=== PATIENT | male | born 1955 | race African-American/Black ===

== ENCOUNTER 2019-01-01 09:21 | Observation (INO) | payer SELFPAY ==
[~2019-01-01] VITALS: Ht 172.7 cm; Wt 46.3 kg
[2019-01-01 10:17] LABS: BASO # 0.1 x10^3/uL (0.0-0.2); BASO % 2 % (0-3); EOS % 1 % (0-3); HEMATOCRIT 40.4 % (39.0-53.0); HEMOGLOBIN 13.4 g/dL (13.0-17.5); LYMPH # 1.3 x10^3/uL (1.0-4.8); LYMPH % 18 % (24-48); MEAN CORPUSCULAR HEMOGLOBIN 31 pg (25-35); MEAN CORPUSCULAR HGB CONC 33 g/dL (31-37); MEAN CORPUSCULAR VOLUME 93 fL (79-100); MONO # 0.8 x10^3/uL (0.0-1.1); MONO % 11 % (0-9); NEUT # 5.1 x10^3/uL (1.8-7.7); NEUT % 69 % (31-73); PLATELET COUNT 471 x10^3/uL (140-400); RED BLOOD COUNT 4.37 x10^6/uL (4.30-5.70); RED CELL DISTRIBUTION WIDTH 17.5 % (11.5-14.5); WHITE BLOOD COUNT 7.4 x10^3/uL (4.0-11.0)
--- NOTE | 2019-01-01 10:27 | EKG ---
[facility] [address] [place] [address] Test Date: 2019-01-01 Test Time: 09:52:44 Pat Name: BETY MARTÍNEZ Department: Room: Gender: M Attending Psychiatrist: : [id number] Requested By: HERNAN OSEI Order Number: [id number] Reading MD: Measurements Intervals [place] Rate: 69 P: 61 GA: 130 QRS: 58 QRSD: 74 T: 47 QT: 350 QTc: 376 Interpretive Statements SINUS RHYTHM OTHERWISE NORMAL ECG RI6.01 No previous ECG available for comparison
[2019-01-01 10:28] LABS: CALCIUM 9.3 mg/dL (8.5-10.1); POTASSIUM 4.3 mmol/L (3.5-5.1)
[2019-01-01 10:33] LABS: ALBUMIN 3.7 g/dL (3.4-5.0); ALBUMIN/GLOBULIN RATIO 0.8 (1.0-1.7); TOTAL BILIRUBIN 0.7 mg/dL (0.2-1.0); TOTAL PROTEIN 8.2 g/dL (6.4-8.2)
[2019-01-01 10:44] LABS: PROTHROMBIN TIME PATIENT 12.3 SEC (11.7-14.0)
--- NOTE | 2019-01-01 10:55 | RAD ---
EXAM: CHEST 1 VIEW History: Shortness of breath COMPARISON: 09/07/2009 TECHNIQUE: Single portable radiograph of the chest FINDINGS: The cardiac silhouette is unremarkable. Minimal blunting of the left CP angle could be tiny effusion or pleural thickening. IMPRESSION: Minimal blunting of the left CP angle could be tiny effusion or pleural thickening. Electronically signed by: Zion Chung MD (01/01/2019 10:52 AM) [id number]
[2019-01-01] MEDS ORDERED: IV NORMAL SALINE 500ML BAG 500 ML IV ONE (11:15)
[2019-01-01 11:28] LABS: BILIRUBIN,URINE NEGATIVE (NEG); CLARITY,URINE CLEAR; COLOR,URINE YELLOW; NITRITE,URINE NEGATIVE (NEG); PROTEIN,URINE NEGATIVE (NEG-TRACE); UROBILINOGEN,URINE 0.2 mg/dL (0.2 mg/dL)
[2019-01-01 11:36] LABS: SQUAMOUS EPITHELIAL CELL,UR OCC /LPF
[2019-01-01 11:37] LABS: BACTERIA,URINE 0 /HPF (0-FEW); RBC,URINE 0 /HPF (0-2); WBC,URINE OCC /HPF (0-4)
[2019-01-01] MEDS ORDERED: IOHEXOL 350 MG/ML 100 ML VIAL. IV ONE (11:45)
[2019-01-01] MEDS ORDERED: MECLIZINE HCL 12.5 MG TABLET. PO ONE (11:45)
--- NOTE | 2019-01-01 12:31 | RAD ---
Examination: CT angiography chest HISTORY: History of elevated d-dimer, shortness of breath COMPARISON: None available TECHNIQUE: Axial CT angiographic images of chest were performed with IV contrast. Coronal and sagittal 3-D MIP reformats are performed Exposure: One or more of the following individualized dose reduction techniques were utilized for this examination: 1. Automated exposure control 2. Adjustment of the mA and/or kV according to patient size 3. Use of iterative reconstruction technique FINDINGS: The central airways are patent. The ascending aorta measures 3 cm in transverse dimension. Coronary artery calcifications. There is no evidence of filling defect identified in the main pulmonary arterial trunk and right and left main pulmonary arteries and the visualized lobar, segmental branches of the pulmonary arteries. Moderate bilateral lung emphysematous changes. Linear atelectasis or scarring changes identified in the left lung base. The visualized liver, spleen grossly appears unremarkable. Mild aortic atherosclerosis. Mild degenerative changes thoracic spine. IMPRESSION: 1. No evidence of pulmonary embolism. 2. Lung emphysematous changes. Linear airspace opacity identified in the left lung base likely atelectasis or scarring. 3. Coronary artery calcifications. Electronically signed by: Zion Chung MD (01/01/2019 12:28 PM) [id number]
--- NOTE | 2019-01-01 13:57 | PDOC2 ---
CARDIAC CONSULT DATE OF CONSULT Date of Consult DATE: 01/01/19 TIME: 13:41 REASON FOR CONSULT Reason for Consult: JAIMES REFERRING PHYSICIAN Referring Physician: Julio C SOURCE Source: Chart review, Patient HISTORY OF PRESENT ILLNESS HISTORY OF PRESENT ILLNESS This is a pleasant 63 yo male admitted for complains of dizziness. Reports that in the last week he has been having dizziness walking like drunk per his description. This last about 5 to 10 min at a time. No associated vertigo, nausea. This is mainly when he is upright. No symptoms of palpitations. Reports no falls or any passing out. He does have SOA particularly with exertion but this has been going on for over a yr and no changes with his activity tolerance. Denies any chest pain and repeatedly per him no exertional CP. No hx of CVA, CAD, arrhythmias. He is a heavy drinker. No hx of seizures. So far denies any focal neurological symptoms. The last time he saw a DrHuseyin was 3 yrs ago. PAST MEDICAL HISTORY Cardiovascular: No pertinent hx Pulmonary: COPD CENTRAL NERVOUS SYSTEM: Other (No pertinent history) GI: No pertinent hx Heme/Onc: No pertinent hx Hepatobiliary: No pertinent hx Psych: Other (alcoholism) Musculoskeletal: Osteoarthritis Rheumatologic: No pertinent hx Infectious disease: No pertinent hx ENT: No pertinent hx Renal/: No pertinent hx Endocrine: No pertinent hx Dermatology: No pertinent hx PAST SURGICAL HISTORY Past Surgical History: Hernia Repair (left), Other (right hand repair) FAMILY HISTORY Family History: Heart Disease (father and brother) SOCIAL HISTORY Smoke: Quit (20 pk yr at least) ALCOHOL: heavy Drugs: Marijuana Lives: Alone CURRENT MEDICATIONS CURRENT MEDICATIONS Current Medications Medications (Trade) Dose Ordered Sig/Chuyita Route PRN Reason Start Time Stop Time Status Last Admin Dose Admin Sodium Chloride 500 ml @ 500 mls/hr 1X ONCE IV 01/01/19 11:15 01/01/19 12:14 DC 01/01/19 11:32 Meclizine HCl (Antivert) 25 mg 1X ONCE PO 01/01/19 11:45 01/01/19 11:47 DC 01/01/19 11:32 Iohexol (Omnipaque 350 Mg/ml) 90 ml 1X ONCE IV 01/01/19 11:45 01/01/19 11:47 DC 01/01/19 12:03 ALLERGIES ALLERGIES: Coded Allergies: No Known Drug Allergies (Unverified , 01/01/19) ROS Review of System 14 point ROS evaluated with pertinent positives noted per HPI PHYSICAL EXAM General: Alert, Oriented X3, Cooperative, No acute distress, Other (cahectic looking) HEENT: Atraumatic, Mucous membr. moist/pink Lungs: Clear to auscultation Heart: Regular rate (SR), Normal S1, Normal S2 Abdomen: Soft, No tenderness Extremities: No cyanosis, No edema Skin: No breakdown Neuro: Normal speech, Sensation intact Psych/Mental Status: Mental status NL, Mood NL MUSCULOSKELETAL: Osteoarthritic changes both hands VITALS/I&O VITALS/I&O: Vital Signs Date Time Temp Pulse Resp B/P (MAP) Pulse Ox O2 Delivery O2 Flow Rate FiO2 01/01/19 12:43 53 18 99 01/01/19 09:25 99.3 169/98 (121) Room Air 99.3 LABS Lab: Laboratory Tests Test 01/01/19 10:02 01/01/19 11:05 White Blood Count 7.4 x10^3/uL (4.0-11.0) Red Blood Count 4.37 x10^6/uL (4.30-5.70) Hemoglobin 13.4 g/dL (13.0-17.5) Hematocrit 40.4 % (39.0-53.0) Mean Corpuscular Volume 93 fL (79-100) Mean Corpuscular Hemoglobin 31 pg (25-35) Mean Corpuscular Hemoglobin Concent 33 g/dL (31-37) Red Cell Distribution Width 17.5 % (11.5-14.5) H Platelet Count 471 x10^3/uL (140-400) H Neutrophils (%) (Auto) 69 % (31-73) Lymphocytes (%) (Auto) 18 % (24-48) L Monocytes (%) (Auto) 11 % (0-9) H Eosinophils (%) (Auto) 1 % (0-3) Basophils (%) (Auto) 2 % (0-3) Neutrophils # (Auto) 5.1 x10^3/uL (1.8-7.7) Lymphocytes # (Auto) 1.3 x10^3/uL (1.0-4.8) Monocytes # (Auto) 0.8 x10^3/uL (0.0-1.1) Eosinophils # (Auto) 0.0 x10^3/uL (0.0-0.7) Basophils # (Auto) 0.1 x10^3/uL (0.0-0.2) Prothrombin Time 12.3 SEC (11.7-14.0) Prothrombin Time INR 0.9 (0.8-1.1) D-Dimer (Laine) 0.67 ug/mlFEU (0.00-0.50) H Sodium Level 142 mmol/L (136-145) Potassium Level 4.3 mmol/L (3.5-5.1) Chloride Level 104 mmol/L (98-107) Carbon Dioxide Level 27 mmol/L (21-32) Anion Gap 11 (6-14) Blood Urea Nitrogen 5 mg/dL (8-26) L Creatinine 1.0 mg/dL (0.7-1.3) Estimated GFR (Cockcroft-Gault) 91.0 BUN/Creatinine Ratio 5 (6-20) L Glucose Level 108 mg/dL (70-99) H Calcium Level 9.3 mg/dL (8.5-10.1) Total Bilirubin 0.7 mg/dL (0.2-1.0) Aspartate Amino Transferase (AST) 30 U/L (15-37) Alanine Aminotransferase (ALT) 14 U/L (16-63) L Alkaline Phosphatase 68 U/L (46-116) Troponin I Quantitative < 0.017 ng/mL (0.000-0.055) PE-Mlp-W-Type Natriuretic Peptide 34 pg/mL (0-124) Total Protein 8.2 g/dL (6.4-8.2) Albumin 3.7 g/dL (3.4-5.0) Albumin/Globulin Ratio 0.8 (1.0-1.7) L Urine Collection Type Unknown Urine Color Yellow Urine Clarity Clear Urine pH 7.0 Urine Specific [place] 1.015 Urine Protein Negative mg/dL (NEG-TRACE) Urine Glucose (UA) Negative mg/dL (NEG) Urine Ketones (Stick) Negative mg/dL (NEG) Urine Blood Negative (NEG) Urine Nitrite Negative (NEG) Urine Bilirubin Negative (NEG) Urine Urobilinogen Dipstick 0.2 mg/dL (0.2 mg/dL) Urine Leukocyte Esterase Negative (NEG) Urine RBC 0 /HPF (0-2) Urine WBC Occ /HPF (0-4) Urine Squamous Epithelial Cells Occ /LPF Urine Bacteria 0 /HPF (0-FEW) Urine Mucus Mod /LPF Laboratory Tests 01/01/19 10:02 Laboratory Tests 01/01/19 10:02 ASSESSMENT/PLAN ASSESSMENT/PLAN 1. Dizziness: neurogenic component could not be completely ruled out with his heavy ETOH consumption but possibly from dehydration r/t to heavy alcoholism 2. Heavy Alcoholism: 32 oz x12 beers daily. chronic 3. Dyspnea: mainly with exertion, unchanged for >1 yr, no alteration on activity tolerance. This is likely from his COPD 4. Coronary calcifications: incidental finding with CT. CP free 5. COPD 6. Marijuana use 7. Cachexia Recommendations 1. CIWA protocol, defer to PCP 2. TSH, lipids, TTE, UDS 3. Will need detox if pt is willing as an outpt 4. Marijuana cessation 5. Further recommendations per pending test 6. Orthostatic readings. ROBBY HAY APRN Jan 01, 2019 13:57
[2019-01-01] MEDS ORDERED: MORPHINE SULFATE 2 MG/ML VIAL. IV PRN (14:00)
[2019-01-01] MEDS ORDERED: TEMAZEPAM 7.5 MG CAPSULE PO PRN (14:00)
[2019-01-01] MEDS ORDERED: ONDANSETRON PF 4 MG/2 ML VIAL. IV PRN (14:00)
[2019-01-01] MEDS ORDERED: chlordiazePOXIDE HCL 25 MG CAPSULE PO PRN (14:00)
[2019-01-01] MEDS ORDERED: ACETAMINOPHEN 500 MG TABLET PO PRN (14:00)
[2019-01-01] MEDS ORDERED: guaiFENesin DM 200MG/20MG 10 ML SYRUP PO PRN (14:00)
[2019-01-01] MEDS ORDERED: ACETAMINOPHEN/CODEINE 300/30MG TABLET. PO PRN (14:00)
--- NOTE | 2019-01-01 14:00 | PDOC1 ---
History and Physical Date of Admission Date of Admission DATE: 01/01/19 TIME: 13:56 Identification/Chief Complaint Chief Complaint lightheaded Source Source: Caregiver, Chart review, Patient History of Present Illness History of Present Illness 43-year-old -Russian male with a BMI 27, lightheaded for the past couple days hence went to the ER. At the emergency room then complained of SOB and chest pain hence admitted with cardiology consult. Does not take any home meds, smokes heavily and drink heavily but he is in denial in both aspects. But cards mid level level was able to elicit this. Also RN was able to elicit a smoking history and drinking history. Not tachycardic. Echocardiogram ordered , okay to eat. Admitted for some cardiovascular/ischemic workup especially given bad lifestyle habits. WIll check orthostatics re the lightheadedness CTA of the chest shows no PE, no pneumonia but emphysematous lungs with coronary calcifications Past Medical History Cardiovascular: No pertinent hx Pulmonary: No pertinent hx GI: No pertinent hx Heme/Onc: No pertinent hx Hepatobiliary: No pertinent hx Psych: No pertinent hx Rheumatologic: No pertinent hx Infectious disease: No pertinent hx Renal/: No pertinent hx Endocrine: No pertinent hx Dermatology: No pertinent hx Past Surgical History Past Surgical History: No pertinent history Family History Family History: Hypertension Social History Smoke: <1 pack per day ALCOHOL: heavy Drugs: None Current Medications Current Medications Current Medications Sodium Chloride 500 ml @ 500 mls/hr 1X ONCE IV Last administered on 01/01/19at 11:32; Start 01/01/19 at 11:15; Stop 01/01/19 at 12:14; Status DC Meclizine HCl (Antivert) 25 mg 1X ONCE PO Last administered on 01/01/19at 11:32; Start 01/01/19 at 11:45; Stop 01/01/19 at 11:47; Status DC Iohexol (Omnipaque 350 Mg/ml) 90 ml 1X ONCE IV Last administered on 01/01/19at 12:03; Start 01/01/19 at 11:45; Stop 01/01/19 at 11:47; Status DC Allergies Allergies: Coded Allergies: No Known Drug Allergies (Unverified , 01/01/19) ROS Review of System pos for Chest pain, no fever, no thick cough, clear phlegm, SOA on exertion, lightheadedness, no dizziness, no headache, no seizure-like activities Physical Exam General: Alert, Oriented X3, Cooperative, No acute distress HEENT: Atraumatic, PERRLA, EOMI Lungs: Clear to auscultation, Normal air movement Heart: S1S2, RRR, no thrills, no rubs, no gallops, no murmurs Cardiovascular: S1, S2 Abdomen: Normal bowel sounds, Soft, No tenderness, No hepatosplenomegaly, No masses Male Genitals Exam: normal genitalia, normal prostate Rectal Exam: not examined PELVIC: Nml ext genitalia Extremities: No clubbing, No cyanosis, No edema, Normal pulses, No tenderness/swelling Skin: No rashes, No breakdown, No significant lesion Neuro: Normal gait, Normal speech, Strength at 5/5 X4 ext, Normal tone, Sensation intact, Cranial nerves 3-12 NL, Reflexes 2+ Psych/Mental Status: Mental status NL, Mood NL Vitals Vitals Vital Signs Date Time Temp Pulse Resp B/P (MAP) Pulse Ox O2 Delivery O2 Flow Rate FiO2 01/01/19 13:48 Room Air 01/01/19 12:43 53 18 99 01/01/19 09:25 99.3 169/98 (121) 99.3 Labs Labs Laboratory Tests Test 01/01/19 10:02 01/01/19 11:05 White Blood Count 7.4 x10^3/uL (4.0-11.0) Red Blood Count 4.37 x10^6/uL (4.30-5.70) Hemoglobin 13.4 g/dL (13.0-17.5) Hematocrit 40.4 % (39.0-53.0) Mean Corpuscular Volume 93 fL (79-100) Mean Corpuscular Hemoglobin 31 pg (25-35) Mean Corpuscular Hemoglobin Concent 33 g/dL (31-37) Red Cell Distribution Width 17.5 % (11.5-14.5) Platelet Count 471 x10^3/uL (140-400) Neutrophils (%) (Auto) 69 % (31-73) Lymphocytes (%) (Auto) 18 % (24-48) Monocytes (%) (Auto) 11 % (0-9) Eosinophils (%) (Auto) 1 % (0-3) Basophils (%) (Auto) 2 % (0-3) Neutrophils # (Auto) 5.1 x10^3/uL (1.8-7.7) Lymphocytes # (Auto) 1.3 x10^3/uL (1.0-4.8) Monocytes # (Auto) 0.8 x10^3/uL (0.0-1.1) Eosinophils # (Auto) 0.0 x10^3/uL (0.0-0.7) Basophils # (Auto) 0.1 x10^3/uL (0.0-0.2) Prothrombin Time 12.3 SEC (11.7-14.0) Prothromb Time International Ratio 0.9 (0.8-1.1) D-Dimer (Laine) 0.67 ug/mlFEU (0.00-0.50) Sodium Level 142 mmol/L (136-145) Potassium Level 4.3 mmol/L (3.5-5.1) Chloride Level 104 mmol/L (98-107) Carbon Dioxide Level 27 mmol/L (21-32) Anion Gap 11 (6-14) Blood Urea Nitrogen 5 mg/dL (8-26) Creatinine 1.0 mg/dL (0.7-1.3) Estimated GFR (Cockcroft-Gault) 91.0 BUN/Creatinine Ratio 5 (6-20) Glucose Level 108 mg/dL (70-99) Calcium Level 9.3 mg/dL (8.5-10.1) Total Bilirubin 0.7 mg/dL (0.2-1.0) Aspartate Amino Transf (AST/SGOT) 30 U/L (15-37) Alanine Aminotransferase (ALT/SGPT) 14 U/L (16-63) Alkaline Phosphatase 68 U/L (46-116) Troponin I Quantitative < 0.017 ng/mL (0.000-0.055) FW-Dpb-T-Type Natriuretic Peptide 34 pg/mL (0-124) Total Protein 8.2 g/dL (6.4-8.2) Albumin 3.7 g/dL (3.4-5.0) Albumin/Globulin Ratio 0.8 (1.0-1.7) Urine Collection Type Unknown Urine Color Yellow Urine Clarity Clear Urine pH 7.0 Urine Specific [place] 1.015 Urine Protein Negative mg/dL (NEG-TRACE) Urine Glucose (UA) Negative mg/dL (NEG) Urine Ketones (Stick) Negative mg/dL (NEG) Urine Blood Negative (NEG) Urine Nitrite Negative (NEG) Urine Bilirubin Negative (NEG) Urine Urobilinogen Dipstick 0.2 mg/dL (0.2 mg/dL) Urine Leukocyte Esterase Negative (NEG) Urine RBC 0 /HPF (0-2) Urine WBC Occ /HPF (0-4) Urine Squamous Epithelial Cells Occ /LPF Urine Bacteria 0 /HPF (0-FEW) Urine Mucus Mod /LPF Laboratory Tests Test 01/01/19 10:02 01/01/19 11:05 White Blood Count 7.4 x10^3/uL (4.0-11.0) Red Blood Count 4.37 x10^6/uL (4.30-5.70) Hemoglobin 13.4 g/dL (13.0-17.5) Hematocrit 40.4 % (39.0-53.0) Mean Corpuscular Volume 93 fL (79-100) Mean Corpuscular Hemoglobin 31 pg (25-35) Mean Corpuscular Hemoglobin Concent 33 g/dL (31-37) Red Cell Distribution Width 17.5 % (11.5-14.5) Platelet Count 471 x10^3/uL (140-400) Neutrophils (%) (Auto) 69 % (31-73) Lymphocytes (%) (Auto) 18 % (24-48) Monocytes (%) (Auto) 11 % (0-9) Eosinophils (%) (Auto) 1 % (0-3) Basophils (%) (Auto) 2 % (0-3) Neutrophils # (Auto) 5.1 x10^3/uL (1.8-7.7) Lymphocytes # (Auto) 1.3 x10^3/uL (1.0-4.8) Monocytes # (Auto) 0.8 x10^3/uL (0.0-1.1) Eosinophils # (Auto) 0.0 x10^3/uL (0.0-0.7) Basophils # (Auto) 0.1 x10^3/uL (0.0-0.2) Prothrombin Time 12.3 SEC (11.7-14.0) Prothromb Time International Ratio 0.9 (0.8-1.1) D-Dimer (Laine) 0.67 ug/mlFEU (0.00-0.50) Sodium Level 142 mmol/L (136-145) Potassium Level 4.3 mmol/L (3.5-5.1) Chloride Level 104 mmol/L (98-107) Carbon Dioxide Level 27 mmol/L (21-32) Anion Gap 11 (6-14) Blood Urea Nitrogen 5 mg/dL (8-26) Creatinine 1.0 mg/dL (0.7-1.3) Estimated GFR (Cockcroft-Gault) 91.0 BUN/Creatinine Ratio 5 (6-20) Glucose Level 108 mg/dL (70-99) Calcium Level 9.3 mg/dL (8.5-10.1) Total Bilirubin 0.7 mg/dL (0.2-1.0) Aspartate Amino Transf (AST/SGOT) 30 U/L (15-37) Alanine Aminotransferase (ALT/SGPT) 14 U/L (16-63) Alkaline Phosphatase 68 U/L (46-116) Troponin I Quantitative < 0.017 ng/mL (0.000-0.055) ZN-Zae-F-Type Natriuretic Peptide 34 pg/mL (0-124) Total Protein 8.2 g/dL (6.4-8.2) Albumin 3.7 g/dL (3.4-5.0) Albumin/Globulin Ratio 0.8 (1.0-1.7) Urine Collection Type Unknown Urine Color Yellow Urine Clarity Clear Urine pH 7.0 Urine Specific [place] 1.015 Urine Protein Negative mg/dL (NEG-TRACE) Urine Glucose (UA) Negative mg/dL (NEG) Urine Ketones (Stick) Negative mg/dL (NEG) Urine Blood Negative (NEG) Urine Nitrite Negative (NEG) Urine Bilirubin Negative (NEG) Urine Urobilinogen Dipstick 0.2 mg/dL (0.2 mg/dL) Urine Leukocyte Esterase Negative (NEG) Urine RBC 0 /HPF (0-2) Urine WBC Occ /HPF (0-4) Urine Squamous Epithelial Cells Occ /LPF Urine Bacteria 0 /HPF (0-FEW) Urine Mucus Mod /LPF VTE Prophylaxis Ordered VTE Prophylaxis Devices: Yes VTE Pharmacological Prophylaxi: Yes Assessment/Plan Assessment/Plan emphysematous lungs Smoker, heavy Alcohol drinker, heavy No PE, no CAP Normal BMI Lightheadedness-check orthostatics, echo Plan: okay to eat regular diet echo cardiology consult check orthostatics no home meds to reconcile, other supportive meds, nicotine patch, CIWA, full code Discussed with family members, counseling on smoking and alcohol less than 30 minutes 1-1 done JEFFREY DOTY MD Jan 01, 2019 14:00
[2019-01-01 14:03] LABS: CHOLESTEROL/HDL RATIO 1.7
[2019-01-01 14:12] VITALS: BP_SYST 146; BP_SYST 148; BP_DIAS 72; BP_DIAS 83
[2019-01-01 14:14] VITALS: BP 135/88
--- NOTE | 2019-01-01 14:16 | PHYS DOC ---
Past Medical History Past Medical History: No Pertinent History Additional Past Medical Histor: Pt denies Past Surgical History: No Surgical History Additional Past Surgical Histo: Pt denies Alcohol Use: Occasionally Drug Use: Marijuana Adult General Chief Complaint Chief Complaint: DIZZY/LIGHT HEADED HPI HPI Patient is a 63 year old male with no past medical she also has not seen a doctor basically his whole life he tells me who is presenting with chief complaint of lightheadedness for the last week almost passes out when he walks around in addition she's been feeling very short of breath with exertion with limited exertion is a very new thing For him he does drink alcohol fairly regularly does smoke occasionally tobacco and also marijuana but no other hard drugs no chest pain no fever no dysuria no vomiting eating well Review of Systems Review of Systems Constitutional: Denies fever or chills [] Eyes: Denies change in visual acuity, redness, or eye pain [] HENT: Denies nasal congestion or sore throat [] Respiratory: Cardiovascular: No additional information not addressed in HPI [] : Denies dysuria or hematuria [] Musculoskeletal: Denies back pain or joint pain [] Integument: Denies rash or skin lesions [] All other systems were reviewed and found to be within normal limits, except as documented in this note. Current Medications Current Medications Current Medications Medications (Trade) Dose Ordered Sig/Chuyita Start Time Stop Time Status Last Admin Dose Admin Iohexol (Omnipaque 350 Mg/ml) 90 ml 1X ONCE 01/01/19 11:45 01/01/19 11:47 DC 01/01/19 12:03 90 ML Meclizine HCl (Antivert) 25 mg 1X ONCE 01/01/19 11:45 01/01/19 11:47 DC 01/01/19 11:32 25 MG Sodium Chloride 500 ml @ 500 mls/hr 1X ONCE 01/01/19 11:15 01/01/19 12:14 DC 01/01/19 11:32 500 MLS/HR Allergies Allergies Allergies Coded Allergies Type Severity Reaction Last Updated Verified No Known Drug Allergies 01/01/19 No Physical Exam Physical Exam Constitutional: Well developed, well nourished, cachectic HENT: Normocephalic, atraumatic, bilateral external ears normal, oropharynx moist, no oral exudates, nose normal. [] Eyes: PERRLA, EOMI, conjunctiva normal, no discharge. [] Neck: Normal range of motion, no tenderness, supple, no stridor. [] Cardiovascular:Heart rate regular rhythm, no murmur [] Lungs & Thorax: Bilateral breath sounds clear to auscultation [] Abdomen: Bowel sounds normal, soft, no tenderness, no masses, no pulsatile masses. [] Skin: Warm, dry, no erythema, no rash. [] Back: No tenderness, no CVA tenderness. [] Extremities: No tenderness, no cyanosis, no clubbing, ROM intact, no edema. [] Neurologic: Alert and oriented X 3, normal motor function, normal sensory function, no focal deficits noted. [] Psychologic: Affect normal, judgement normal, mood normal. [] Current Patient Data Vital Signs Vital Signs Date Time Temp Pulse Resp B/P (MAP) Pulse Ox O2 Delivery O2 Flow Rate FiO2 01/01/19 11:34 59 18 99 01/01/19 09:25 99.3 169/98 (121) Room Air 99.3 Lab Values Laboratory Tests Test 01/01/19 10:02 01/01/19 11:05 White Blood Count 7.4 x10^3/uL (4.0-11.0) Red Blood Count 4.37 x10^6/uL (4.30-5.70) Hemoglobin 13.4 g/dL (13.0-17.5) Hematocrit 40.4 % (39.0-53.0) Mean Corpuscular Volume 93 fL (79-100) Mean Corpuscular Hemoglobin 31 pg (25-35) Mean Corpuscular Hemoglobin Concent 33 g/dL (31-37) Red Cell Distribution Width 17.5 % (11.5-14.5) H Platelet Count 471 x10^3/uL (140-400) H Neutrophils (%) (Auto) 69 % (31-73) Lymphocytes (%) (Auto) 18 % (24-48) L Monocytes (%) (Auto) 11 % (0-9) H Eosinophils (%) (Auto) 1 % (0-3) Basophils (%) (Auto) 2 % (0-3) Neutrophils # (Auto) 5.1 x10^3/uL (1.8-7.7) Lymphocytes # (Auto) 1.3 x10^3/uL (1.0-4.8) Monocytes # (Auto) 0.8 x10^3/uL (0.0-1.1) Eosinophils # (Auto) 0.0 x10^3/uL (0.0-0.7) Basophils # (Auto) 0.1 x10^3/uL (0.0-0.2) Prothrombin Time 12.3 SEC (11.7-14.0) Prothrombin Time INR 0.9 (0.8-1.1) D-Dimer (Laine) 0.67 ug/mlFEU (0.00-0.50) H Sodium Level 142 mmol/L (136-145) Potassium Level 4.3 mmol/L (3.5-5.1) Chloride Level 104 mmol/L (98-107) Carbon Dioxide Level 27 mmol/L (21-32) Anion Gap 11 (6-14) Blood Urea Nitrogen 5 mg/dL (8-26) L Creatinine 1.0 mg/dL (0.7-1.3) Estimated GFR (Cockcroft-Gault) 91.0 BUN/Creatinine Ratio 5 (6-20) L Glucose Level 108 mg/dL (70-99) H Calcium Level 9.3 mg/dL (8.5-10.1) Total Bilirubin 0.7 mg/dL (0.2-1.0) Aspartate Amino Transferase (AST) 30 U/L (15-37) Alanine Aminotransferase (ALT) 14 U/L (16-63) L Alkaline Phosphatase 68 U/L (46-116) Troponin I Quantitative < 0.017 ng/mL (0.000-0.055) DO-Qwp-C-Type Natriuretic Peptide 34 pg/mL (0-124) Total Protein 8.2 g/dL (6.4-8.2) Albumin 3.7 g/dL (3.4-5.0) Albumin/Globulin Ratio 0.8 (1.0-1.7) L Triglycerides Level 57 mg/dL (0-150) Cholesterol Level 257 mg/dL (0-200) H LDL Cholesterol, Calculated 98 mg/dL (0-100) VLDL Cholesterol, Calculated 11 mg/dL (0-40) Non-HDL Cholesterol Calculated 109 mg/dL (0-129) HDL Cholesterol 148 mg/dL (40-60) H Cholesterol/HDL Ratio 1.7 Thyroid Stimulating Hormone (TSH) 0.745 uIU/mL (0.358-3.74) Urine Collection Type Unknown Urine Color Yellow Urine Clarity Clear Urine pH 7.0 Urine Specific [place] 1.015 Urine Protein Negative mg/dL (NEG-TRACE) Urine Glucose (UA) Negative mg/dL (NEG) Urine Ketones (Stick) Negative mg/dL (NEG) Urine Blood Negative (NEG) Urine Nitrite Negative (NEG) Urine Bilirubin Negative (NEG) Urine Urobilinogen Dipstick 0.2 mg/dL (0.2 mg/dL) Urine Leukocyte Esterase Negative (NEG) Urine RBC 0 /HPF (0-2) Urine WBC Occ /HPF (0-4) Urine Squamous Epithelial Cells Occ /LPF Urine Bacteria 0 /HPF (0-FEW) Urine Mucus Mod /LPF Laboratory Tests 01/01/19 10:02 Laboratory Tests 01/01/19 10:02 EKG EKG NSR RATE normal no stemi Radiology/Procedures Radiology/Procedures [] Impressions: IMPRESSION: 1. No evidence of pulmonary embolism. 2. Lung emphysematous changes. Linear airspace opacity identified in the left lung base likely atelectasis or scarring. 3. Coronary artery calcifications. Electronically signed by: Zion Chung MD (01/01/2019 12:28 PM) [id number] Course & Med Decision Making Course & Med Decision Making Pertinent Labs and Imaging studies reviewed. (See chart for details) []63-year-old male no prior past medical history really, Presenting with dyspnea on exertion for the last week. Unclear etiology d-dimer was elevated CT chest negative for PE did show coronary artery calcifications. It is possible this could be a anginal equivalent I think patient is restricted revocation does not have any follow-up at all. Will be admitted to hospitalist for further evaluation and treatment. I also spoke with the nurse Xochitl from cardiology as well who will evluate this patient. lungs clear no wheezing in er. pt cachectic but labs overall look stable no anemia abdomen benign not distended Dragon Disclaimer Dragon Disclaimer This electronic medical record was generated, in whole or in part, using a voice recognition dictation system. Departure Departure Impression: Primary Impression: Dyspnea Additional Impression: Dyspnea on exertion Disposition: ADMITTED INPATIENT Admitting Physician: HIMS Condition: STABLE Referrals: NO PCP (PCP) Problem Qualifiers HERNAN OSEI MD Jan 01, 2019 14:16
[2019-01-01 14:35] LABS: BARBITURATES NEG (NEG); BENZODIAZEPINES NEG (NEG); CANNABINOIDS POS (NEG); COCAINE NEG (NEG); METHADONE NEG (NEG); OPIATES NEG (NEG); PHENCYCLIDINE NEG (NEG)
[2019-01-01 14:51] LABS: AMPHETAMINE/METHAMPHETAMINE NEG (NEG)
[2019-01-01] MEDS: IPRATRPIUM/ALBUTEROL 0.5/2.5MG 3 ML NEBU. NEB SCH ×2 (15:21→20:00)
[2019-01-01] MEDS: MULTIVITAMIN with MINERAL TABLET. PO SCH (15:35)
[2019-01-01] MEDS: FOLIC ACID 1 MG TABLET. PO SCH (15:35)
[2019-01-01] MEDS: THIAMINE 100 MG TABLET. PO SCH (15:35)
[2019-01-01 19:16] VITALS: BP_SYST 123; BP_SYST 127; BP_SYST 154; BP_DIAS 77; BP_DIAS 80; BP_DIAS 83
[2019-01-01] MEDS: NICOTINE 21MG PATCH. TD PRN (19:40)
[2019-01-01 23:44] VITALS: BP 123/75
[2019-01-02 03:38] VITALS: BP 148/87
[2019-01-02 07:57] VITALS: BP_SYST 131; BP_SYST 133; BP_SYST 147; BP_DIAS 78; BP_DIAS 85; BP_DIAS 93
[2019-01-02] MEDS: FOLIC ACID 1 MG TABLET. PO SCH (09:14)
[2019-01-02] MEDS: MULTIVITAMIN with MINERAL TABLET. PO SCH (09:14)
[2019-01-02] MEDS: THIAMINE 100 MG TABLET. PO SCH (09:14)
--- NOTE | 2019-01-02 11:20 | PDOC ---
[facility] PROGRESS NOTE Chief Complaint Chief Complaint Shortness of Breath Emphysematous lungs Chest Pain Smoker, heavy Alcohol drinker, heavy History of Present Illness History of Present Illness 01/02/19 Pt seen/examined at bedside Will consult Dr. Fitzgerald for possible COPD Chart reviewed TREY RN Vitals/I&O Vitals/I&O: Vital Signs Date Time Temp Pulse Resp B/P (MAP) Pulse Ox O2 Delivery O2 Flow Rate FiO2 01/02/19 09:14 Room Air 01/02/19 07:57 98.0 60 18 131/78 (95) 100 98.0 I & O 0 01/01/19 01/01/19 01/02/19 15:00 23:00 07:00 Intake Total 500 ml 350 ml 350 ml Balance 500 ml 350 ml 350 ml Physical Exam General: Alert, Oriented X3, Cooperative, No acute distress Heart: Regular rate (SR), Normal S1, Normal S2 Abdomen: Normal bowel sounds, Soft, No tenderness, No hepatosplenomegaly, No masses Extremities: No clubbing, No cyanosis, No edema, Normal pulses, No tenderness/ swelling Skin: No rashes, No breakdown, No significant lesion Labs Labs: Laboratory Tests Test 01/01/19 14:00 01/01/19 15:10 01/01/19 18:05 Urine Opiates Screen Neg (NEG) Urine Methadone Screen Neg (NEG) Urine Barbiturates Neg (NEG) Urine Phencyclidine Screen Neg (NEG) Urine Amphetamine/Methamphetamine Neg (NEG) Urine Benzodiazepines Screen Neg (NEG) Urine Cocaine Screen Neg (NEG) Urine Cannabinoids Screen Pos (NEG) Urine Ethyl Alcohol Neg (NEG) Troponin I Quantitative < 0.017 ng/mL (0.000-0.055) < 0.017 ng/mL (0.000-0.055) Review of Systems Review of Systems: co chest pain co SOB Assessment and Plan Assessmemt and Plan Problems Medical Problems: (1) Dyspnea Status: Acute (2) Dyspnea on exertion Status: Acute Assessment: Shortness of Breath Emphysematous lungs Chest Pain Smoker, heavy Alcohol drinker, heavy Plan: O2 Breathing treatments Awaiting Echo results Abx DuoNeb PT/OT Home Meds DVT prophylaxis Appreciate pulmonary input Comment Review of Relevant I have reviewed the following items luis (where applicable) has been applied. Medications: Current Medications Medications (Trade) Dose Ordered Sig/Chuyita Route PRN Reason Start Time Stop Time Status Last Admin Dose Admin Meclizine HCl (Antivert) 25 mg 1X ONCE PO 01/01/19 11:45 01/01/19 11:47 DC 01/01/19 11:32 Iohexol (Omnipaque 350 Mg/ml) 90 ml 1X ONCE IV 01/01/19 11:45 01/01/19 11:47 DC 01/01/19 12:03 Thiamine Mononitrate (Vitamin B-1) 100 mg DAILY PO 01/01/19 15:00 01/02/19 09:14 Multivitamins (Thera M Plus) 1 tab DAILY PO 01/01/19 15:00 01/02/19 09:14 Folic Acid (Folic Acid) 1 mg DAILY PO 01/01/19 15:00 01/02/19 09:14 Nicotine (Nicoderm Cq 21mg) 1 patch PRN DAILY PRN TD SMOKING CESSATION 01/01/19 14:00 01/01/19 19:40 Albuterol/ Ipratropium (Duoneb) 3 ml RTQID NEB 01/01/19 16:00 01/01/19 20:03 AUBREY SHARPE III DO Jan 02, 2019 11:20
[2019-01-02] MEDS: IPRATRPIUM/ALBUTEROL 0.5/2.5MG 3 ML NEBU. NEB SCH ×2 (11:36→15:23)
[2019-01-02 11:59] VITALS: BP 170/100
--- NOTE | 2019-01-02 12:19 | PDOC ---
CARDIO Progress Notes Date and Time Date of Service 01/02/19 Time of Evaluation 1215 Subjective Subjective: No Chest Pain, No shortness of breath, No Palpitations, No Dizziness Vitals Vitals Vital Signs Date Time Temp Pulse Resp B/P (MAP) Pulse Ox O2 Delivery O2 Flow Rate FiO2 01/02/19 11:59 98.0 81 20 170/100 (123) 100 Room Air 98.0 Weight Weight [ ] Input and Output Intake and Output Intake and Output 01/02/19 07:00 Intake Total 1200 ml Balance 1200 ml Intake Oral 700 ml IV Total 500 ml # Voids 1 Laboratory Labs Laboratory Tests Test 01/01/19 14:00 01/01/19 15:10 01/01/19 18:05 Urine Opiates Screen Neg (NEG) Urine Methadone Screen Neg (NEG) Urine Barbiturates Neg (NEG) Urine Phencyclidine Screen Neg (NEG) Urine Amphetamine/Methamphetamine Neg (NEG) Urine Benzodiazepines Screen Neg (NEG) Urine Cocaine Screen Neg (NEG) Urine Cannabinoids Screen Pos (NEG) Urine Ethyl Alcohol Neg (NEG) Troponin I Quantitative < 0.017 ng/mL (0.000-0.055) < 0.017 ng/mL (0.000-0.055) Physical Exam HEENT: Neck Supple W Full Motion Chest: Symmetric LUNGS: Clear to Auscultation Heart: S1S2, RRR Abdomen: Soft N/T Extremities: No Edema Neurology: alert, oriented, follow commands Assessment Assessment 1. Dizziness: resolved. possibly dehydration related. Echo showed preserved LV systolic function. No WMA or significant valvular insufficiency 2. Heavy Alcoholism: 32 oz x12 beers daily. chronic. Discussed cessation 3. Dyspnea secondary to AE COPD 4. Coronary calcifications: incidental finding with CT. CP free 5. COPD 6. Marijuana use; discussed/encouraged cessation Recommendations Ensure adequate oral hydration Consider outpatient treatment for ETOH Consider outpatient ischemic evaluation STEWART BURCH APRN Jan 02, 2019 12:19
--- NOTE | 2019-01-02 12:36 | CONS ---
DATE OF CONSULTATION: PULMONARY CONSULTATION ATTENDING PHYSICIAN: Payton Lua DO REASON FOR CONSULTATION: COPD. HISTORY OF PRESENT ILLNESS: The patient is 63 years old who has been smoking since age 14. Now smokes here and there, not on a consistent basis. He presented to the Emergency Room with shortness of breath and chest pain. The patient underwent imaging study and a CT angiogram was performed. There was no evidence of any pulmonary embolism. There was evidence of emphysematous changes and some scarring at the left base. He feels better. He is on room air. He states he is going to quit cigarettes. No further chest pain. No headaches, no nausea, vomiting or diarrhea. PAST MEDICAL HISTORY: Significant for suspected emphysema. PAST SURGICAL HISTORY: No recent surgeries. FAMILY HISTORY: Hypertension. SOCIAL HISTORY: Smoker, less than half pack per day. History of alcohol use, mostly beer. ALLERGIES: None. CURRENT MEDICATIONS: Reviewed as listed in the MRAD. PHYSICAL EXAMINATION: VITAL SIGNS: Reviewed. NECK: Supple. LUNGS: Clear. CARDIOVASCULAR: With a regular rate. ABDOMEN: Soft. EXTREMITIES: With no pitting edema. LABORATORY DATA: Reviewed. White cell count 7.4, hemoglobin 13.3. IMPRESSION: 1. Dyspnea secondary to likely chronic obstructive pulmonary disease exacerbation. 2. Chest pain, resolved. No evidence of pulmonary embolism. 3. Long history of tobacco use. 4. Long history of alcohol use. RECOMMENDATIONS: 1. From a pulmonary standpoint, and he is looking good, he could be discharged home. 2. Smoking cessation counseling provided and he is agreeable to quit cigarettes. 3. P.r.n. bronchodilators. 4. Discharge home today. Discussed with RN. JAMIE PHILLIPS MD DR: FARZANA/bella JOB#: [id number] / [id number]
[2019-01-02 15:00] VITALS: BP 132/90
[2019-01-02] MEDS: NICOTINE 21MG PATCH. TD PRN (15:40)
--- NOTE | 2019-01-02 16:00 | NUR ---
Patient discharged to home. Discharge instructions, medications, and follow up appointments discussed with patient. patient verbalized understanding. Discharge papers given to patient. IV discontinued. All belongings with patient. Assisted patient out in wheelchair by staff. Patients brother here to get patient.
--- NOTE | 2019-01-02 21:12 | DS ---
DATE OF DISCHARGE: 01/02/2019 ADMISSION DIAGNOSIS: Chronic obstructive pulmonary disease. DISCHARGE DIAGNOSIS: Resolving chronic obstructive pulmonary disease. CONSULTS: Pulmonary and Cardiology. PROCEDURES: None. HOSPITAL COURSE: The patient is a pleasant 63-year-old -[place] male who smokes periodically and basically has COPD. He presented with some shortness of breath. Imaging study showed emphysema. He also drinks heavily. We admitted the patient and consult Cardiology and Pulmonary this morning. He also was doing well this morning. I saw and examined him. Her heart tones are normal. Lungs are clear. He is requesting to go home. We plan to discharge if okay with consultants. DISPOSITION: Home. ACTIVITY: As tolerated. DIET: Low sodium. MEDICATIONS: Please see the MRAD. TOTAL TIME: 32 minutes. AUBREY SHARPE DO DR: HAMIDA/bella JOB#: [id number] / [id number]
--- NOTE | 2019-01-03 13:07 | CARD ---
MR#: [id number] Date of Study: 01/01/2019 Ordering Physician: ROBBY HAY, Referring Physician: ROBBY HAY, Tech: Johana Martinez APPROVED REPORT EXAM: Two-dimensional and M-mode echocardiogram with Doppler and color Doppler. Other Information Quality : AverageHR: 70bpm Technically limited study due to smoking and COPD INDICATION Dizziness and Vertigo Dyspnea 2D DIMENSIONS RVDd2.4 (2.9-3.5cm)Left Atrium(2D)2.7 (1.6-4.0cm) IVSd0.8 (0.7-1.1cm)Aortic Root(2D)2.7 (2.0-3.7cm) LVDd4.0 (3.9-5.9cm)LVOT Diameter2.0 (1.8-2.4cm) PWd1.0 (0.7-1.1cm)LVDs2.5 (2.5-4.0cm) FS (%) 37.1 %SV46.3 ml LVEF(%)67.6 (>50%) Aortic Valve AoV Peak Nimesh.119.2cm/sAoV VTI18.4cm AO Peak GR.5.7mmHgLVOT Peak Nimesh.82.3cm/s LVOT VTI 17.71cmAO Mean GR.2mmHg SINDHU (VMAX)1.41zg9PUD (VTI)3.00cm2 Mitral Valve MV E Hoqzrhpd91.2cm/sMV DECEL [id number] MV A Mdfzqpwy25.6cm/sMV ONM00np E/A Ratio1.2MVA (PHT)3.50cm2 TDI E/Lateral E'4.6E/Medial E'7.3 Pulmonary Valve PV Peak Yxebqpje47.0cm/sPV Peak Grad.3mmHg Tricuspid Valve TR P. Iraiwzif759hb/sRAP [id number] TR Peak Gr.57adZeNCDM35cdNo Pulmonary Vein S1 Ukqrnvur60.7cm/sD2 Jmpnuffx74.8cm/s PVa [id number] LEFT VENTRICLE The left ventricle is normal size. There is normal left ventricular wall thickness. The left ventricu lar systolic function is normal and the ejection fraction is within normal range. The Ejection Fracti on is >55%. There is normal LV segmental wall motion. Transmitral Doppler flow pattern is Grade II-ps eudonormal filling dynamics. RIGHT VENTRICLE The right ventricle is normal size. There is normal right ventricular wall thickness. The right ventr icular systolic function is normal. ATRIA The left atrium size is normal. The right atrium size is normal. The interatrial septum is intact wit h no evidence for an atrial septal defect or patent foramen ovale as noted on 2-D or Doppler imaging. AORTIC VALVE The aortic valve is normal in structure and function. Doppler and Color Flow revealed no significant aortic regurgitation. There is no significant aortic valvular stenosis. MITRAL VALVE The mitral valve is normal in structure and function. There is no evidence of mitral valve prolapse. There is no mitral valve stenosis. Doppler and Color-flow revealed trace mitral regurgitation. TRICUSPID VALVE The tricuspid valve is normal in structure and function. Doppler and Color Flow revealed trace tricus pid regurgitation with an estimated PAP of 42 mmHg. There is mild-moderate pulmonary hypertension. Th ere is no tricuspid valve stenosis. PULMONIC VALVE The pulmonic valve is not well visualized. Doppler and Color Flow revealed no pulmonic valvular regur gitation. There is no pulmonic valvular stenosis. GREAT VESSELS The aortic root is normal in size. The IVC is normal in size and collapses >50% with inspiration. PERICARDIAL EFFUSION There is no evidence of significant pericardial effusion. Critical Notification Critical Value: No <Conclusion> The left ventricular systolic function is normal and the ejection fraction is within normal range. Th e Ejection Fraction is >55%. There is normal LV segmental wall motion. Signed by : Arsalan Cruz, Electronically Approved : 01/01/2019 16:58:11
== END 2019-01-02 16:00 | disposition home or self-care (01) ==
LOC: ER 09:21 → ED HOLD 11:45 → 6 SOUTH 12:58
PROVIDERS: ADMIT Internal Medicine; ATTEND Internal Medicine
DX: R42 Dizziness and giddiness (principal); F17.210 Nicotine dependence, cigarettes, uncomplicated; J43.9 Emphysema, unspecified; F12.90 Cannabis use, unspecified, uncomplicated; F10.20 Alcohol dependence, uncomplicated; I25.10 Atherosclerotic heart disease of native coronary artery without angina pectoris; Z82.49 Family history of ischemic heart disease and other diseases of the circulatory system
CPT/HCPCS: 36415; 71045; 71275; 80053; 80061; 80307; 81001; 83880; 84443; 84484; 85025; 85379; 85610; 93005; 93306; 94640; 94760; 97116; 97161; 99284; G0378; J7040; J7620; J8597; Q9967; G0379